=== PATIENT | male | born 2000 | race African-American/Black ===

== ENCOUNTER 2023-09-13 23:18 | Emergency (ER) | payer SELFPAY ==
[~2023-09-13] VITALS: Ht 182.9 cm; Wt 67.1 kg
[2023-09-13 23:30] VITALS: O2SAT 100
[2023-09-14] MEDS ORDERED: AMOX1TAB16 MT (00:51)
[2023-09-14] MEDS ORDERED: IBUP-2029 MT (00:55)
[2023-09-14 01:00] VITALS: BP 130/73; PULSE 90; RESP 18
[2023-09-14] MEDS ORDERED: DEXAMETHASONE 1MG TABLET PO ONE (01:00)
[2023-09-14] MEDS: DEXAMETHASONE 2MG TABLET PO NR (01:00)
[2023-09-14] MEDS: KETOROLAC 30MG/ML VIAL IV ONE (01:00)
[2023-09-14 02:05] VITALS: TEMP 98.8
== END 2023-09-14 02:07 | disposition home or self-care (01) ==
LOC: ER 23:18
DX: J36 Peritonsillar abscess (principal)
CPT/HCPCS: 99283; 96374; J8540; J1885